=== PATIENT | female | born 1995 | race Caucasian/White ===

== ENCOUNTER 2019-03-10 18:02 | Emergency (ER) | payer SELFPAY ==
[~2019-03-10] VITALS: Ht 157.5 cm; Wt 66.3 kg
[2019-03-10] MEDS ORDERED: ACETAMINOPHEN 325 MG TABLET ONE ×2 (18:50→18:55)
[2019-03-10] MEDS ORDERED: KETOROLAC 30 MG/1 ML ONE (18:50)
[2019-03-10] MEDS ORDERED: DEXAMETHASONE 4 MG TABLET ONE (18:51)
[2019-03-10] MEDS ORDERED: KETOROLAC 30 MG/1 ML IM ONE (19:00)
[2019-03-10] MEDS ORDERED: DEXAMETHASONE 4 MG TABLET PO ONE (19:00)
[2019-03-10] MEDS ORDERED: ACETAMINOPHEN 325 MG TABLET PO ONE (19:00)
[2019-03-10 19:34] VITALS: BP 99/62
== END 2019-03-10 19:40 | disposition home or self-care (01) ==
LOC: ED 19:34
DX: J02.0 Streptococcal pharyngitis (principal)
CPT/HCPCS: 96372; 99283; J1885

== ENCOUNTER 2019-07-23 15:44 | Emergency (ER) | payer MEDICAID, OTHER ==
[~2019-07-23] VITALS: Ht 157.5 cm; Wt 67.8 kg
[2019-07-23 15:51] VITALS: BP 124/72
== END 2019-07-23 17:24 | disposition home or self-care (01) ==
LOC: ED 17:04
DX: S93.401A Sprain of unspecified ligament of right ankle, initial encounter (principal); S80.02XA Contusion of left knee, initial encounter; S80.01XA Contusion of right knee, initial encounter; S00.511A Abrasion of lip, initial encounter; S00.81XA Abrasion of other part of head, initial encounter; S80.212A Abrasion, left knee, initial encounter; S80.211A Abrasion, right knee, initial encounter; G89.11 Acute pain due to trauma; W10.8XXA Fall (on) (from) other stairs and steps, initial encounter; Y93.89 Activity, other specified; Y92.098 Other place in other non-institutional residence as the place of occurrence of the external cause; Y99.8 Other external cause status
CPT/HCPCS: 99283